=== PATIENT | female | born 1985 | race Caucasian/White ===

== ENCOUNTER 2016-06-19 15:11 | Emergency (ER) | payer BC ==
[~2016-06-19 15:11] MED LIST: ALBUTEROL17 GM INH; BIRTH CONTROL PILL; CLARITIN R10 MG REDI PO; DICLOFENAC PO; FIORICET 50-321 EACH PO; NO MEDICATIONS; ROBITUSSIN PO; ZITHROMAX PO; ZOFRAN ODT4 MG/UDTAB PO
[2016-06-19] MEDS ORDERED: CHEMO (15:33)
[2016-06-19] MEDS ORDERED: BLACK COHOSH40 M1 PO (15:34)
[2016-06-19] MEDS ORDERED: VITAMIN B122500 MC1 (15:34)
[2016-06-19] MEDS ORDERED: GABAPENTIN300 MG PO (15:34)
[2016-06-19] MEDS ORDERED: VITAMIN B650 M1 PO (15:34)
[2016-06-19] MEDS ORDERED: COMPAZINE5 M1 PO (15:34)
[2016-06-19] MEDS ORDERED: PHENERGAN25 M1 PO (15:35)
[2016-06-19] MEDS ORDERED: ATIVAN PO (15:35)
== END 2016-06-19 15:40 | disposition home or self-care (01) ==
LOC: SED 15:11
DX: H60.11 Cellulitis of right external ear (principal); Z85.3 Personal history of malignant neoplasm of breast; Z79.899 Other long term (current) drug therapy; Z88.1 Allergy status to other antibiotic agents
CPT/HCPCS: 99282

== ENCOUNTER 2016-07-19 21:14 | Emergency (ER) | payer BC ==
[~2016-07-19 21:14] MED LIST changes: +ATIVAN PO; +BLACK COHOSH40 M1 PO; +CHEMO; +COMPAZINE5 M1 PO; +GABAPENTIN300 MG PO; +PHENERGAN25 M1 PO; +VITAMIN B122500 MC1; +VITAMIN B650 M1 PO
[2016-07-21] MEDS ORDERED: CLEOCIN PO (17:56)
== END 2016-07-20 00:32 | disposition home or self-care (01) ==
LOC: SED 21:14
DX: S90.862A Insect bite (nonvenomous), left foot, initial encounter (principal); L03.116 Cellulitis of left lower limb; W57.XXXA Bitten or stung by nonvenomous insect and other nonvenomous arthropods, initial encounter; Y92.007 Garden or yard of unspecified non-institutional (private) residence as the place of occurrence of the external cause
CPT/HCPCS: 99282

== ENCOUNTER 2016-07-21 17:49 | Emergency (ER) | payer BC ==
[2016-07-21] MEDS ORDERED: CLEOCIN PO (17:56)
== END 2016-07-21 19:06 | disposition home or self-care (01) ==
LOC: SED 17:49
DX: T78.40XA Allergy, unspecified, initial encounter (principal); T36.8X5A Adverse effect of other systemic antibiotics, initial encounter; L03.116 Cellulitis of left lower limb; Z88.1 Allergy status to other antibiotic agents; Z79.899 Other long term (current) drug therapy
CPT/HCPCS: 10060; 99283